=== PATIENT | female | born 1960 | race Two or more races ===

== ENCOUNTER 2019-07-13 11:15 | Inpatient (IN) | payer OTHER ==
[~2019-07-13] VITALS: Ht 147.3 cm; Wt 77.5 kg
[2019-07-13 12:14] LABS: Basophils # (auto) 0 uL; Basophils % (auto) 0.4 % (0.0-2.0); Eosinophils # (auto) 0.2 uL; Eosinophils % (auto) 2.4 % (0.0-7.0); Hematocrit 41.3 % (36.0-46.0); Hemoglobin 13.7 g/dL (12.2-16.2); Lymphocytes # (auto) 2.7 uL; Lymphocytes % (auto) 34.9 % (10.0-50.0); Mean Corpuscular Hemoglobin 30.2 pg (28.0-32.0); Mean Corpuscular Hgb Conc. 33.2 g/dL (32.0-36.0); Monocytes # (auto) 0.5 uL; Monocytes % (auto) 6.4 % (0.0-12.0); Neutrophils # (auto) 4.3 uL; Neutrophils % (auto) 55.9 % (37.0-80.0); Platelet Count (auto) 267 10^3/uL (140-450); Red Blood Cells 4.54 10^6/uL (4.0-5.20); Red Cell Distribution Width 14.6 % (11.8-14.3); White Blood Cell 7.6 10^3/uL (4.4-10.8)
[2019-07-13 12:30] LABS: Albumin 3.7 g/dL (3.4-5.0); Anion Gap 8 (5-15); Blood Urea Nitrogen 10 mg/dL (7-18); Calcium 8.8 mg/dL (8.5-10.1); Carbon Dioxide 26 mmol/L (21-32); Chloride 106 mmol/L (98-107); Glucose 172 mg/dL (74-106); Potassium 3.8 mmol/L (3.5-5.1); Sodium 140 mmol/L (136-145)
[2019-07-13 12:37] LABS: Alanine Aminotransferase 23 U/L (13-56); Alkaline Phosphatase 56 U/L (45-117); Aspartate Aminotransferase 18 U/L (15-37); BUN/Creatinine Ratio 10.8; Bilirubin, Total 0.2 mg/dL (0.2-1.0); GFR African American 79 mL/min; GFR Non-African American 65 mL/min; Total Protein 7.3 g/dL (6.4-8.2)
[2019-07-13 14:26] LABS: INR 1.03 (0.9-1.15); Partial Thromboplastin Time 27.5 sec (23.64-32.05)
[2019-07-13 14:52] LABS: Magnesium 2.4 mg/dL (1.6-2.6)
[2019-07-13 16:28] LABS: Urine Bacteria FEW /hpf (None Seen); Urine Blood Negative /uL (Negative); Urine WBC 2 /hpf (0 - 5)
[2019-07-13] MEDS ORDERED: SODIUM CHLORIDE 0.9% 1,000 ML IV ONE (17:00)
[2019-07-13] MEDS ORDERED: MORPHINE SULF INJ 2 MG/ML SYRINGE 1ML IV PRN (17:00)
[2019-07-13] MEDS ORDERED: NITROGLYCERIN 0.4 MG SL TAB SL PRN (17:00)
[2019-07-13] MEDS: HYDROcodone-ACET 10/325MG TAB PO PRN ×2 (17:16→23:19)
--- NOTE | 2019-07-13 18:48 | NUR ---
Telemetry admit from DOROTHEA MCGRAW admitted to Telemetry unit after SBAR received. Patient oriented to SVETLANA CHEATHAM RN primary RN, unit, room, bed, and unit policies regarding patient care and visiting hours. Patient now on continuous telemetry monitoring, tele box #63. Patient weighed by bedscale and encouraged to call if they need something. All questions and concerns addressed, patient verbalized understanding.
--- NOTE | 2019-07-13 19:10 | NUR ---
Patient states she will have her bring her home medications in tomorrow for RN to review and update patient chart.
--- NOTE | 2019-07-13 19:30 | NUR ---
Assessment done and completed. Pt. is new admit, arrived to the [facility] Floor @ around 1850 PM. Pt. new admit assessment done and gathered data and medications taken @ home. Pt. does not remember some names, dose and frequency of the medications taken @ home. Pt. instructed her to bring the complete list of medications taken @ home by tomorrow AM 07/14/2019 in order to complete the medcal reconciliation in the [employer]. Pt. promised will bring the med. list tomorrow.
--- NOTE | 2019-07-13 19:33 | NUR ---
Closing Shift Note Patient resting in bed. No distress noted. Report given. Will endorse care to the operation shift supervisor RN.
[2019-07-13 20:00] VITALS: BP 124/61
--- NOTE | 2019-07-13 20:00 | NUR ---
Pt. in bed resting, assessment completed. Pt. informed RNOD Crista that after she fell @ home today, the areas of her body that's hurting are Right hip, Right Arm/Right wrist which is swelling and Right Leg which is covered with cast due to s/p Fall Fracture @ the ankle/leg. Pt. in Room air, no s/s of sob, denies chest pain, in Tele # 63. Pt. is Sinus Rhythm with 1st degree AVB @ the monitor. Generally Skin Intact. No BM @ this time. Pt. able to void by using the bedpan. Pt. provided mod. assist with activities of daily living. Provided assistance with hygiene, perineal care and repositioning. Keep pt. safe and magnetic tape winder bed.
[2019-07-13 21:57] VITALS: BP 126/85
--- NOTE | 2019-07-13 22:00 | NUR ---
Pt. transferred from room 297 A to room 281 B. Pt. properly placed and a sitter watching/monitoring pt. safety @ the bedside. IVF of NS @ 75 ml./hr. continuously. Pt. on CCHO diet. Pt. provided sandwich and snacks.
--- NOTE | 2019-07-13 23:19 | NUR ---
Pt. verbalized severe pain @ the Right Hip, right knee/leg/arm/wrist and Right shoulder/clavicle about 10/10 scale. Pt. given [place] 10/325 mg. 1 tab. po . @ around this time. Pt. has good swallowing reflex. Pt. encouraged to rest and sleep now. Still with a sitter @ the bedside to watch pt. safety due to fall early today.
--- NOTE | 2019-07-14 02:00 | NUR ---
Pt. quiet and sleeping undisturbed. Intermittently awakens and assisted with toileting, able to void with the use of the bedpan. Provided perineal care and partial bedbath, changed chux and bed linens if wet with the help of the PROCESS ASSISTANT/sitter @ the bedside. No verbalization of pain @ this time.
--- NOTE | 2019-07-14 03:00 | NUR ---
Pt. was transferred from room 281 B to 292 A as instructed by the Charge Nurse Hiren. Keep pt. clean, safe and brake linings coater bed. Pt. still Tele # 63, Sinus Rhythm with 1st degree AVB. No s/s of chest pain. No s/s of sob. Pt. calm and returned to sleep. Intermittently awaken when voiding. Pt. will call to ask for help with the use of bedpan. Maintained pt. safety and keep clean and dry in bed. IVF of NS will continuously running @ 75 ml/hr. attached to the LAC G # 20.
--- NOTE | 2019-07-14 04:00 | NUR ---
Pt. quiet and resting now. Continuously monitor and watch pt. safety with call-light within pt. reach. Pt. has no sitter @ this time since the pt. is oriented x 4, coherent and following commands.
[2019-07-14 05:39] VITALS: BP 123/83
[2019-07-14 06:01] LABS: Basophils # (auto) 0 uL; Basophils % (auto) 0.6 % (0.0-2.0); Eosinophils # (auto) 0.2 uL; Eosinophils % (auto) 3.3 % (0.0-7.0); Hematocrit 38.1 % (36.0-46.0); Hemoglobin 12.9 g/dL (12.2-16.2); Lymphocytes # (auto) 2.6 uL; Mean Corpuscular Hemoglobin 30.8 pg (28.0-32.0); Mean Corpuscular Hgb Conc. 33.9 g/dL (32.0-36.0); Mean Corpuscular Volume 90.9 fL (80.0-100.0); Monocytes # (auto) 0.5 uL; Neutrophils # (auto) 2.1 uL; Neutrophils % (auto) 38.1 % (37.0-80.0); Nucleated Red Blood Cells % 0.1 %; Platelet Count (auto) 260 10^3/uL (140-450); Red Cell Distribution Width 14.6 % (11.8-14.3); White Blood Cell 5.5 10^3/uL (4.4-10.8)
[2019-07-14 06:43] LABS: Potassium 3.7 mmol/L (3.5-5.1)
[2019-07-14 06:48] LABS: BUN/Creatinine Ratio 17.4; Calcium 8.5 mg/dL (8.5-10.1)
--- NOTE | 2019-07-14 07:30 | NUR ---
Opening Shift Note Assuming care of patient at this time. Patient is awake and alert. Patient complains of generalized pain all over due to fall. Will medicate per doctor's orders. Bed is locked and lowered with side rails up x2. Instructed patient on the plan of care for today and to call for assistance as needed. Call light within reach. Will continue to round hourly and as needed.
[2019-07-14] MEDS: HYDROcodone-ACET 10/325MG TAB PO PRN ×2 (08:07→17:02)
[2019-07-14] MEDS ORDERED: LEVO112T4 PO (08:53)
[2019-07-14] MEDS ORDERED: MONT5CHW17 PO (08:53)
[2019-07-14] MEDS ORDERED: METF-370 PO (08:53)
[2019-07-14] MEDS ORDERED: RANI300C7 PO (08:53)
[2019-07-14] MEDS ORDERED: FLUT0.05 NAS (08:53)
[2019-07-14] MEDS ORDERED: EST0625T PV (08:53)
[2019-07-14] MEDS ORDERED: DULA0.5I SC (08:53)
[2019-07-14] MEDS ORDERED: ALBU2TAB4 INH (08:53)
[2019-07-14] MEDS ORDERED: ALEN1TAB32 PO (08:53)
[2019-07-14] MEDS ORDERED: ROSU20TA14 PO (08:53)
[2019-07-14] MEDS ORDERED: OMEP20TA PO (08:53)
[2019-07-14] MEDS ORDERED: HYDR-3682 PO (08:53)
[2019-07-14] MEDS ORDERED: TIOT1AER IN (08:53)
[2019-07-14] MEDS ORDERED: HYDR2.5L TOP (08:53)
[2019-07-14] MEDS ORDERED: GLIP10TA9 PO (08:53)
[2019-07-14] MEDS ORDERED: OMEG300C7 OR (08:53)
[2019-07-14] MEDS ORDERED: GABA-339 PO (08:53)
[2019-07-14] MEDS ORDERED: BENA10TA9 PO (08:53)
[2019-07-14] MEDS ORDERED: FLUT1INH2 IN (08:53)
[2019-07-14] MEDS ORDERED: QUET100T46 PO (08:53)
[2019-07-14] MEDS ORDERED: ESTR0.3T PO (08:53)
[2019-07-14] MEDS ORDERED: SERT-274 PO (08:53)
[2019-07-14] MEDS ORDERED: ESTR1TAB3 PV (08:53)
[2019-07-14] MEDS ORDERED: TRAZ150T79 PO (08:53)
[2019-07-14 09:00] VITALS: BP 147/89
[2019-07-14 12:39] VITALS: BP 147/89
[2019-07-14 13:00] VITALS: BP 119/50
--- NOTE | 2019-07-14 15:30 | NUR ---
Call to [employer] Call to social service director at this time to inform them of patient's walker order. Patient is hoping to have walker delivered to bedside before discharge.
[2019-07-14 16:46] VITALS: BP 140/86
--- NOTE | 2019-07-14 16:51 | NUR ---
Transfer of Care Transfer of care to Charlee, MICHAEL, at this time. Report given. Patient resting in bed. No distress noted at this time.
--- NOTE | 2019-07-14 17:13 | NUR ---
Patient has order for FWW. Referral was sent to [facility] [phone]. Will follow up on 07.15.2019 with CM for delegated vendor. Addendum: 07/18/19 at 1606 by TALI SALAZAR SS Spoke with Statue Maker Debbie at [facility] and she advised patient's walker was sent to [facility].
--- NOTE | 2019-07-14 18:10 | NUR ---
Discharge Discharge instructions given as ordered. Encourage to follow up with PMD as instructed. All questions and concerns addressed. Patient verbalized understanding. Medication reconciliation form completed and copy given to patient. Patient taken to vehicle via wheelchair with all personal belongings, accompanied by staff and family member. No distress noted at time of departure.
== END 2019-07-14 18:10 | disposition home or self-care (01) | DRG 563 ==
LOC: ER 11:15 → TELE-WESTW 11:16
PROVIDERS: ADMIT Internal Medicine; ATTEND Internal Medicine
DX: S82.63XA Displaced fracture of lateral malleolus of unspecified fibula, initial encounter for closed fracture (principal); S42.017A Nondisplaced fracture of sternal end of right clavicle, initial encounter for closed fracture; R55 Syncope and collapse; S13.9XXA Sprain of joints and ligaments of unspecified parts of neck, initial encounter; J44.9 Chronic obstructive pulmonary disease, unspecified; G47.30 Sleep apnea, unspecified; E78.5 Hyperlipidemia, unspecified; S63.92XA Sprain of unspecified part of left wrist and hand, initial encounter; I10 Essential (primary) hypertension; E11.40 Type 2 diabetes mellitus with diabetic neuropathy, unspecified; W20.8XXA Other cause of strike by thrown, projected or falling object, initial encounter; Y93.89 Activity, other specified; Y92.89 Other specified places as the place of occurrence of the external cause; Z90.49 Acquired absence of other specified parts of digestive tract; Y99.8 Other external cause status; Z83.3 Family history of diabetes mellitus; Z82.49 Family history of ischemic heart disease and other diseases of the circulatory system; Z79.899 Other long term (current) drug therapy; Z79.84 Long term (current) use of oral hypoglycemic drugs
CPT/HCPCS: 36415; 70450; 71045; 72125; 73000; 73030; 73110; 73130; 73610; 80048; 80053; 81001; 82962; 83735; 84484; 85025; 85610; 85730; 93005; 93306; 93886; 96360; G0378